=== PATIENT | female | born 1995 | race African-American/Black ===

== ENCOUNTER 2018-12-23 07:56 | Emergency (ER) | payer MEDICAID ==
[~2018-12-23] VITALS: Ht 177.8 cm; Wt 75.0 kg
[2018-12-23 08:57] LABS: CLARITY URINE CLOUDY (CLEAR); COLOR URINE YELLOW (YELLOW); KETONES URINE TRACE (NEGATIVE); LEUKOCYTE ESTERASE URINE TRACE (NEGATIVE); NITRITE URINE NEGATIVE (NEGATIVE); OCCULT BLOOD URINE NEGATIVE (NEGATIVE); PROTEIN URINE NEGATIVE (NEGATIVE); SPECIFIC GRAVITY URINE 1.018 (1.005-1.030)
[2018-12-23 10:10] VITALS: BP 131/74
== END 2018-12-23 13:00 | disposition left against medical advice (07) ==
LOC: ER 07:56
DX: R10.30 Lower abdominal pain, unspecified (principal); Z53.21 Procedure and treatment not carried out due to patient leaving prior to being seen by health care provider
CPT/HCPCS: 81025